=== PATIENT | female | born 1940 | race Asian ===

== ENCOUNTER 2018-11-30 07:24 | Day surgery (SDC) | payer OTHER ==
[~2018-11-30] VITALS: Ht 30.5 cm; Wt 0.5 kg
== END 2018-11-30 10:00 | disposition home or self-care (01) ==
LOC: OR 07:24
PROC: 3E0R33Z Introduction of Anti-inflammatory into Spinal Canal, Percutaneous Approach (ICD-10-PCS; principal; 2018-11-30)
PROC: B01BYZZ Fluoroscopy of Spinal Cord using Other Contrast (ICD-10-PCS; 2018-11-30)
DX: M51.16 Intervertebral disc disorders with radiculopathy, lumbar region (principal)
CPT/HCPCS: J1020; J2001; J2250; J2704; J3490

== ENCOUNTER → 2018-12-28 | Day surgery (SDC) | payer OTHER ==
[~2018-12-28] VITALS: Ht 30.5 cm; Wt 0.5 kg
[2018-12-28 08:42] LABS: PLATELET COUNT 394 K/uL (152-353)
== END ==
LOC: OR
PROVIDERS: Pain Medicine Interventional Pain Medicine
PROC: 3E0R33Z Introduction of Anti-inflammatory into Spinal Canal, Percutaneous Approach (ICD-10-PCS; principal; 2018-12-28)
PROC: B01BYZZ Fluoroscopy of Spinal Cord using Other Contrast (ICD-10-PCS; 2018-12-28)
DX: M51.16 Intervertebral disc disorders with radiculopathy, lumbar region (principal)
CPT/HCPCS: 85027; J1020; J2001; J2250; J2704

== ENCOUNTER → 2019-02-01 | Day surgery (SDC) | payer OTHER ==
[~2019-02-01] VITALS: Ht 160 cm; Wt 115.7 kg
[2019-02-01 09:42] LABS: PLATELET COUNT 359 K/uL (152-353)
[2019-02-01 10:37] LABS: POTASSIUM 2.8 mmol/L (3.6-5.2)
== END ==
LOC: OR 08:30
PROVIDERS: Pain Medicine Interventional Pain Medicine
DX: Z53.8 Procedure and treatment not carried out for other reasons (principal); M51.16 Intervertebral disc disorders with radiculopathy, lumbar region
CPT/HCPCS: 80053; 85027; J2405

== ENCOUNTER 2019-02-22 08:04 | Day surgery (SDC) | payer OTHER ==
[2019-02-22 09:10] LABS: PLATELET COUNT 323 K/uL (152-353)
== END 2019-02-22 11:00 | disposition home or self-care (01) ==
LOC: OR 08:04
PROVIDERS: Pain Medicine Interventional Pain Medicine
PROC: 3E0R33Z Introduction of Anti-inflammatory into Spinal Canal, Percutaneous Approach (ICD-10-PCS; principal; 2019-02-22)
PROC: B01BYZZ Fluoroscopy of Spinal Cord using Other Contrast (ICD-10-PCS; 2019-02-22)
DX: M51.16 Intervertebral disc disorders with radiculopathy, lumbar region (principal)
CPT/HCPCS: 80053; 83735; 85027; J1020; J2001; J2250; J2405; J2704; J2765